=== PATIENT | female | born 1985 | race Hispanic/Latino ===

== ENCOUNTER 2020-02-21 17:13 | Outpatient (CLI) | payer OTHER, SELFPAY ==
--- NOTE | ~2020-02-21 | US_ITS ---
EXAMINATION: US OB follow up DATE: 02/21/2020 17:40 INDICATION: Suspected demise during second trimester TECHNIQUE: Real-time ultrasound of the pelvis was performed. The interpreting radiologist was not pre sent for the study. COMPARISON: None. FINDINGS: There is a single living fetus in vertex presentation. The placenta is anterior. card iac activity is not detected. The amniotic fluid index is subjectively normal. IMPRESSION: 1. demise. Reviewed, dictated and finalized at location A. IMPRESSION: 1. demise.
== END 2020-02-21 17:14 | disposition home or self-care (01) ==
LOC: ANHIMG 17:18
PROVIDERS: PCP Internal Medicine; Visit Provider Obstetrics & Gynecology
DX: O36.4XX0 Maternal care for intrauterine death, not applicable or unspecified (principal)
CPT/HCPCS: 76816

== ENCOUNTER 2020-02-22 05:55 | Inpatient (IN) | payer OTHER, SELFPAY ==
[2020-02-22] VITALS (59 sets, daily range): BP systolic 86–118; BP diastolic 47–90; PULSE 64–118; TEMP 36.7–37.6; O2SAT 97–100; BMI 27.5
--- NOTE | 2020-02-22 06:38 | P.HP_ITS ---
H&P: HPI History of Present Illness Chief complaint: IUFD Narrative: Zeina Nieves is a 34 year old female 4 para 2011 who presents at 15 weeks gestation for induction of labor secondary to demise. She had a previous 13 week demise and 2 previous spontaneous vaginal deliveries at term. She had an ultrasound in office following some bleeding which showed an IUFD. This was confirmed at [facility]. Review of Systems Review of Systems: All systems reviewed & are unremarkable except as noted in HPI and below Meds Home Medications and Allergies Allergies Allergy/AdvReac Type Severity Reaction Status Date / Time No Known Allergies Allergy Unverified 06/09/19 11:10 Exam Const: General: no acute distress Eyes: General: appearance normal, both eyes and all related structures Neck: Neck: supple and no JVD Thyroid: thyroid normal Resp: Effort & Inspection: normal respiratory effort Auscultation: clear to auscultation bilaterally Cardio: Rate: regular rate Rhythm: regular rhythm GI: Inspection: non-distended GI Palp: Yes Soft to palpation, No Tenderness to palpation present (GI) and No Guarding due to palpation present (GI) Auscultation: normal bowel sounds : General: Yes bladder normal to palpation External Female Exam: normal external appearance Speculum Exam - Vagina: normal vaginal discharge and No vaginal bleeding Speculum Exam - Cervix: nontender Bimanual exam- vagina & uterus: bladder normal to palpation and No Cervical tenderness present OB/external & speculum: No vaginal bleeding Skin: General skin exam: no rashes or lesions noted Extrem: General: normal to inspection and no edema Psych: Mental Status: mental status grossly normal Affect: normal affect Assessment and Plan Additional Plan Impression: 15 week demise Plan: Vital lateral labor. Risks and benefits reviewed
[2020-02-22 07:20] LABS: Basophils Percent Auto 0.3 % (0.2-1.2); Eosinophils Percent Auto 0.5 % (0-4.4); Hematocrit 37.3 % (37.0-47.0); Hemoglobin 12.3 g/dL (12.0-15.0); Immature Granulocyte Absolute 0.06 K/mm3 (0.00-0.031); Lymphocytes Absolute Auto 1.27 K/mm3 (0.9-3.2); Lymphocytes Percent Auto 21.7 % (18.3-44.2); Mean Corpuscular Hemoglobin 29.6 pg (26-34); Mean Corpuscular Volume 89.9 fl (80-100); Mean Platelet Volume 10.7 fl (7.4-10.4); Monocytes Absolute Auto 0.4 K/mm3 (0.1-0.6); Monocytes Percent Auto 7.4 % (2.6-8.5); Neutrophils Percent Auto 69.1 % (45.5-73.1); Platelet Count Result 243 k/mm3 (150-375); Red Blood Count 4.15 M/mm3 (4.2-5.4); Red Cell Distribution Width 13.2 % (11.5-14.5); White Blood Count 5.8 K/mm3 (4.5-10.0)
[2020-02-22 07:33] LABS: Glucose 109 mg/dL (65-105)
[2020-02-22 07:38] LABS: Amphetamine Screen Urine Negative (Negative); Barbiturate Screen Urine Negative (Negative); Benzodiazepines Screen Urine Negative (Negative); Cannabinoid Screen Urine Negative (Negative); Cocaine Screen Urine Negative (Negative); Methadone Screen Urine Negative (Negative); Opiate Screen Urine Negative (Negative); Phencyclidine Screen Urine Negative (Negative)
[2020-02-22] MEDS: MISOPROSTOL 200 MCG TABLET VAGINAL ×2 (08:02→11:22)
[2020-02-22 08:13] LABS: HIV 1/2 Ab P24 Ag Result Negative (Negative)
[2020-02-22 08:31] LABS: Free T4 Free Thyroxine 1.03 ng/mL (0.78-2.19)
--- NOTE | 2020-02-22 12:51 | PM.PROC ---
Procedure Note - Detailed Date of procedure: 02/22/20 Pre-op diagnosis: IUFD Surgeon: Félix Brower MD Postop diagnosis IUFD Anesthesia: None EBL: 25cc Findings: 2nd trimester demise/placenta deliver pending Complications: None Procedure: Patient was admitted for induction of labor secondary to a 15 week demise. Cytotec was placed twice. The baby spontaneously delivered. Blood loss at this point is 15cc. Placenta is still in the uterus and no bleeding is seen. Cervix is 2-3 cm. Will continue with Cytotec as long as bleeding is minimal
[2020-02-22] MEDS: MISOPROSTOL 200 MCG TABLET RECTAL (12:54)
[2020-02-22] MEDS: LACTATED RINGERS 1,000 ML 125 ML IV CONT (14:35)
[2020-02-22] MEDS: OXYTOCIN 30 UNITS/NS 500 ML 30 UNITS/500 ML BAG 999 UNITS IV CONT (14:50)
--- NOTE | 2020-02-22 15:20 | PM.PROC ---
Procedure Note - Detailed Date of procedure: 02/22/20 Pre-op diagnosis: IUFD Surgeon: Félix Brower MD Postop diagnosis: Retained placenta Procedure: Dilatation and evacuation placenta. EBL: 100cc Findings: Retained placenta in a Complications: None Description of procedure: The patient was watched following a spontaneous vaginal delivery of a 15 week demise. The placenta did not deliver. After obtained formed consent Dr. Nelson applied IV sedation and the cervix was grasped with a ring forceps. The ring forceps was passed in the placenta removed piecemeal through the vagina through the cervix. Banjo curette was removed and no further tissue removed. Blood loss was estimated 100cc. Sponge in was 1 counts were correct. There were no complications
--- NOTE | 2020-02-22 15:23 | PM.DS ---
DS: Diagnosis Admitting Diagnosis Admitting Diagnosis: Fifteen week demise Retained placenta DS: Summary Time Spent with Patient Time attestation: Total time spent providing and/or coordinating discharge services: Exam Const: General: no acute distress Eyes: General: appearance normal, both eyes and all related structures Neck: Neck: supple and no JVD Thyroid: thyroid normal Resp: Effort & Inspection: normal respiratory effort Auscultation: clear to auscultation bilaterally Cardio: Rate: regular rate Rhythm: regular rhythm GI: Inspection: non-distended GI Palp: Yes Soft to palpation, No Tenderness to palpation present (GI) and No Guarding due to palpation present (GI) Auscultation: normal bowel sounds : General: Yes bladder normal to palpation External Female Exam: normal external appearance Speculum Exam - Vagina: normal vaginal discharge and No vaginal bleeding Speculum Exam - Cervix: nontender Bimanual exam- vagina & uterus: bladder normal to palpation and No Cervical tenderness present OB/external & speculum: No vaginal bleeding Skin: General skin exam: no rashes or lesions noted Extrem: General: normal to inspection and no edema Psych: Mental Status: mental status grossly normal Affect: normal affect DS: Data Data Completed and Pending Pending studies at discharge: Pending at discharge 02/22/20 13:20 Cytology [PTH] Routine 02/22/20 15:14 Surgical [PTH] Routine Labs on day of discharge: Labs from last 24 hours 02/22/20 02/22/20 02/22/20 07:07 07:07 07:06 WBC RBC Hgb Hct MCV MCH MCHC RDW Plt Count MPV Immature Gran % (Auto) Neut % (Auto) Lymph % (Auto) [place] % (Auto) Eos % (Auto) Baso % (Auto) Lymph # (Auto) [place] # (Auto) Eos # (Auto) Baso # (Auto) Abs Immat Gran (auto) Absolute Neuts (auto) Absolute Nucleated RBC Nucleated RBC % LA PTT Screen LA PTT Comment dRVVT Screen dRVVT Additional Test Lupus Anticoag Interp Glucose TSH Free T4 Urine Opiates Screen Urine Methadone Screen Ur Barbiturates Screen Ur Phencyclidine Scrn Ur Amphetamine Screen U Benzodiazepines Scrn Urine Cocaine Screen U Cannabinoids Screen Beta-2-GPI IgG Ab Pending Beta-2-GPI IgA Ab Pending Beta-2-GPI IgM Ab Pending Anti-Cardiolipin IgG Ab Anti-Cardiolipin IgA Ab Anti-Cardiolipin IgM Ab RPR Pending CMV IgG Ab Pending CMV IgM Ab Pending HIV 1&2 Ab/P24 Ag 4thGn Blood Type B Positive Antibody Screen Negative KB Hemoglobin Negative 02/22/20 02/22/20 02/22/20 07:06 07:06 07:06 WBC RBC Hgb Hct MCV MCH MCHC RDW Plt Count MPV Immature Gran % (Auto) Neut % (Auto) Lymph % (Auto) [place] % (Auto) Eos % (Auto) Baso % (Auto) Lymph # (Auto) [place] # (Auto) Eos # (Auto) Baso # (Auto) Abs Immat Gran (auto) Absolute Neuts (auto) Absolute Nucleated RBC Nucleated RBC % LA PTT Screen LA PTT Comment dRVVT Screen dRVVT Additional Test Lupus Anticoag Interp Glucose TSH Free T4 1.03 Urine Opiates Screen Urine Methadone Screen Ur Barbiturates Screen Ur Phencyclidine Scrn Ur Amphetamine Screen U Benzodiazepines Scrn Urine Cocaine Screen U Cannabinoids Screen Beta-2-GPI IgG Ab Beta-2-GPI IgA Ab Beta-2-GPI IgM Ab Anti-Cardiolipin IgG Ab Pending Anti-Cardiolipin IgA Ab Pending Anti-Cardiolipin IgM Ab Pending RPR CMV IgG Ab CMV IgM Ab HIV 1&2 Ab/P24 Ag 4thGn Negative Blood Type Antibody Screen KB Hemoglobin 02/22/20 02/22/20 02/22/20 07:06 07:05 07:05 WBC 5.8 RBC 4.15 L Hgb 12.3 Hct 37.3 MCV 89.9 MCH 29.6 MCHC 33.0 RDW 13.2 Plt Count 243 MPV 10.7 H Immature Gran % (Auto) 1.0 H Neut % (Auto) 69.
[2020-02-22] MEDS: IBUPROFEN 600 MG TABLET PO (16:19)
[2020-02-23 11:25] LABS: Rapid Plasma Reagin Non-Reactive (NonReactive)
[2020-02-24 05:01] LABS: Lupus dRVVT 1:1 Mix Interpreta Not Indicated; Lupus dRVVT Screen 34 sec (<=45); PTT-LA Screen 30 sec (<=40)
[2020-02-25 01:54] LABS: Anti Cardio Antibody IgM <12 MPL (<=12); Anti Cardiolipin Antibody IgA <11 APL (<=11); Anti Cardiolipin Antibody IgG <14 GPL (<=14)
[2020-02-25 16:54] LABS: CMV IgM Antibody <30.00 AU/mL (<30.00)
== END 2020-02-22 19:20 | disposition home or self-care (01) | DRG 770 ==
PROVIDERS: Admitting Provider Obstetrics & Gynecology; PCP Internal Medicine; Visit Provider Obstetrics & Gynecology
DX: O02.1 Missed abortion (principal); Z3A.15 15 weeks gestation of pregnancy
CPT/HCPCS: 36415; 76816; 80307; 82947; 84439; 84443; 85025; 85460; 85597; 85598; 85613; 85670; 85730; 86146; 86147; 86592; 86644; 86645; 86703; 86850; 86900; 86901; 88305; 88307; A9270; G0432; J2590; J3010; J7120

== ENCOUNTER 2021-08-10 18:20 | Emergency (ER) | payer OTHER, SELFPAY ==
[2021-08-10 18:35] VITALS: BP 132/98; PULSE 72; RESP 17; TEMP 36.7; O2SAT 100
--- NOTE | 2021-08-10 21:22 | PC.NURSE ---
1st call to bring pt to room, no answer.
== END 2021-08-10 21:22 | disposition left against medical advice (07) ==
PROVIDERS: PCP Internal Medicine
DX: Z53.21 Procedure and treatment not carried out due to patient leaving prior to being seen by health care provider (principal)
CPT/HCPCS: 99199

== ENCOUNTER 2022-11-01 01:43 | Observation (INO) | payer OTHER, SELFPAY ==
--- NOTE | 2022-11-01 01:43 | OBADM ---
This patient, Zeina Nieves, admitted to the OB room OB Post 116 for observation. Patient/family oriented to hospital policies and general routines including ID bracelet, bed and alarms, visiting hours, pain management, procedures, bathroom and other care routines, personal items, smoking policy, room service/diet, and visiting hours. Patient/Family are encouraged to report perceived risks to care and to ask questions if they do not understand what they are told or what they should do.
[2022-11-01 02:07] VITALS: BP 107/70; PULSE 84
--- NOTE | 2022-11-01 02:30 | PC.NURSE ---
Notified Dr. Obrien of maternal and assessments. Patient complaint of bright red vaginal bleeding following urination, patient states blood was present when she was wiping after voiding. Patient has voided 2 times following initial vaginal bleeding and states she is no longer having any bleeding when she is wiping. VSS. Patient denies any pain or contractions. Abdomen palpates soft. FHT appropriate for gestational age. Patient reports active movement. Orders received.
[2022-11-01 02:54] LABS: Add Urine Microscopic? NO; Appearance Urine Clear (Clear); Bilirubin Urine Negative (Negative); Blood Urine Negative (Negative); Color Urine Yellow (Yellow); Glucose Urine UA Negative (Negative); Ketones Urine Negative (Negative); Leukocyte Esterase Ur Negative LEU/UL (Negative); Nitrate Urine Negative (Negative); Protein Urine Negative (Negative); Specific Grav Ur <= 1.005 (1.001-1.035); Urobilinogen Urine 0.2 mg/dL (<2.0)
[2022-11-01 02:57] LABS: Bacteria Urine Trace /hpf; Mucus Urine Rare /lpf; RBC Urine 0-2 /hpf (0-2); Squamous Epithelial Cell Urine Rare /hpf (Few); WBC Urine 0-3 /hpf
--- NOTE | 2022-11-01 03:28 | PC.NURSE ---
Discharge instructions reviewed with patient. labor precautions reviewed. Patient states understanding of all discharge instructions, agrees to discharge and denies questions.
--- NOTE | 2022-12-02 08:25 | PM.OBTRLD ---
OB - Triage/Final Diagnosis Visit Information Comments/Additional reasons for admission: I have assessed the risk for this patient, Zeina Nieves, and determined that she would benefit from observation care. Evaluation Laboratory results: Laboratory Tests 11/01/22 02:44 Urine Color Yellow Urine Appearance Clear Urine pH 7.0 Ur Specific [place] <= 1.005 Urine Protein Negative Urine Glucose (UA) Negative Urine Ketones Negative Ur Blood (Man) Negative Urine Nitrate Negative Urine Bilirubin Negative Urine Urobilinogen 0.2 Leukocyte Esterase Rfl Negative Urine RBC 0-2 Urine WBC 0-3 Ur Squamous Epith Cells Rare Urine Bacteria Trace Urine Mucus Rare Final Diagnosis (1) Vaginal bleeding during : Code(s): O46.90 - Antepartum hemorrhage, unspecified, unspecified trimester Status: Acute
== END 2022-11-01 03:36 | disposition home or self-care (01) ==
PROVIDERS: Admitting Provider Obstetrics & Gynecology; PCP Internal Medicine; Visit Provider Obstetrics & Gynecology
DX: O46.93 Antepartum hemorrhage, unspecified, third trimester (principal); Z3A.30 30 weeks gestation of pregnancy
CPT/HCPCS: 81003; G0378; G0379

== ENCOUNTER 2023-01-09 04:59 | Inpatient (IN) | payer OTHER, SELFPAY ==
[2023-01-09] VITALS (28 sets, daily range): BP systolic 80–130; BP diastolic 58–88; PULSE 73–122; RESP 14–18; TEMP 36.6–37.3; O2SAT 97–99; BMI 28.2
--- NOTE | 2023-01-09 05:28 | LDADM ---
This patient, Zeina Nieves, was admitted to Labor/Delivery/Recovery 105 on 01/09/23 at 04:59. Plans for labor, pain management and were discussed with patient. Patient/family oriented to hospital policies and general routines including ID bracelet, bed and alarms, visiting hours, pain management, procedures, bathroom and other care routines, personal items, smoking policy, room service/diet and guest tray routines, security routines, and visiting hours. Patient/Family are encouraged to report perceived risks to care and to ask questions if they do not understand what they are told or what they should do. See OBIX for further documentation.
[2023-01-09 05:35] LABS: Basophils Percent Auto 0.3 % (0.2-1.2); Eosinophils Percent Auto 0.4 % (0-4.4); Hematocrit 35.8 % (37.0-47.0); Hemoglobin 12.2 g/dL (12.0-15.0); Immature Granulocyte Absolute 0.16 K/mm3 (0.00-0.031); Immature Granulocyte Percent A 2.1 % (0-0.5); Lymphocytes Absolute Auto 1.57 K/mm3 (0.9-3.2); Lymphocytes Percent Auto 20.8 % (18.3-44.2); Mean Corpuscular HGB Conc 34.1 g/dl (32-36); Mean Corpuscular Hemoglobin 31.5 pg (26-34); Mean Corpuscular Volume 92.5 fl (80-100); Mean Platelet Volume 11.1 fl (7.4-10.4); Monocytes Absolute Auto 0.5 K/mm3 (0.1-0.6); Monocytes Percent Auto 6.5 % (2.6-8.5); Neutrophils Absolute Auto 5.3 K/mm3 (1.3-6.7); Neutrophils Percent Auto 69.9 % (45.5-73.1); Platelet Count Result 198 k/mm3 (150-375); Red Blood Count 3.87 M/mm3 (4.2-5.4); Red Cell Distribution Width 14.3 % (11.5-14.5); White Blood Count 7.5 K/mm3 (4.5-10.0)
[2023-01-09] MEDS: OXYTOCIN 30 UNITS/NS 500 ML 30 UNITS/500 ML BAG IV CONT (05:50)
[2023-01-09] MEDS: LACTATED RINGERS 1,000 ML 125 ML IV CONT (05:50)
--- NOTE | 2023-01-09 08:25 | PM.IMHP ---
H&P: HPI History of Present Illness Date/Time: 01/09/23 08:25 Chief Complaint: induction of labor Narrative: Zeina is a 37yo at 40.2 for IOL. She has history of 2 second trimester miscarriges and is AMA. 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 GBS neg. Review of Systems Review of Systems: All systems reviewed & are unremarkable except as noted in HPI and below PMFSH Family History Family History Father Hypertension Social History Social History (System 10/28/21 @ 11:05 by Cristopher Velazquez) Smoking status: Never smoker Substance use: never Lack of Transportation: No Lack of Food: Never True Current Housing: I Have Housing Concerned About Future Housing: No Difficulty Paying Gas/Electric Bills: No Difficulty Paying for Meds: No Currently Unemployed: No Education: High School Diploma/GED Difficulty w/ Childcare or Family Care: No Gender identity (if verbalized by the patient): Female Spiritual care concerns: No Meds Home Medications and Allergies Home Medications Medication Instructions Recorded Confirmed Type ferrous sulfate 325 mg (65 mg 325 mg PO DAILY 12/11/22 12/11/22 History iron) tablet prenat.vits,nile,zuf-xbsy-rifis 1 tablet PO HS 12/11/22 12/11/22 History Allergies Allergy/AdvReac Type Severity Reaction Status Date / Time No Known Allergies Allergy Unverified 10/28/21 11:05 Vital Signs Vital Signs - 24 hr 01/09/23 05:17 01/09/23 05:31 01/09/23 05:46 Temperature 98 F Pulse Rate 104 H 88 83 Respiratory Rate 18 Blood Pressure 128/86 118/77 111/72 Oxygen Delivery 01/09/23 06:01 01/09/23 06:31 01/09/23 07:01 Temperature Pulse Rate 105 H 78 87 Respiratory Rate Blood Pressure 97/74 L 120/65 108/78 Oxygen Delivery 01/09/23 07:31 01/09/23 07:35 01/09/23 08:01 Temperature Pulse Rate 85 83 76 Respiratory Rate Blood Pressure 80/61 L 106/78 119/70 Oxygen Delivery 01/09/23 05:27 Temperature Pulse Rate Respiratory Rate Blood Pressure Oxygen Delivery Room Air Exam Const: General: no acute distress Resp: Effort & Inspection: normal respiratory effort Auscultation: clear to auscultation bilaterally Cardio: Rate: regular rate Rhythm: regular rhythm GI: GI Palp: Yes Soft to palpation Extrem: General: normal to inspection H&P: Results Labs Labs: Short CBC 01/09/23 Range/Units 05:22 WBC 7.5 (4.5-10.0) K/mm3 Hgb 12.2 (12.0-15.0) g/dL Hct 35.8 L (37.0-47.0) % Plt Count 198 (150-375) k/mm3 Assessment and Plan Assessment and plan (1) Elective induction of labor planned: Status: Acute Plan GBS neg FHT category 1 pitocin per protocol
--- NOTE | 2023-01-09 09:13 | WPDANESEPP ---
Anes - Eval Pre Procedure Procedure: labor epidural Date/Time: 01/09/23 09:13 Preop Diagnosis: labor pain Pre Op Diagnosis: iol Patient Data Age: 37 Gender: F Height: 1.65 m Weight: 77 kg Last Vital Signs Temp 37.1 C 01/09/23 08:48 Pulse 77 01/09/23 08:31 Resp 18 01/09/23 05:31 BP 117/76 01/09/23 08:31 O2 Del Method Room Air 01/09/23 05:27 Allergies Allergy/AdvReac Type Severity Reaction Status Date / Time No Known Allergies Allergy Unverified 10/28/21 11:05 Home Medications Medication Instructions Recorded Confirmed Type ferrous sulfate 325 mg (65 mg 325 mg PO DAILY 12/11/22 12/11/22 History iron) tablet prenat.vits,nile,jpo-opzu-fqxua 1 tablet PO HS 12/11/22 12/11/22 History Laboratory Tests 01/09/23 01/09/23 01/09/23 05:22 05:22 05:22 WBC 7.5 K/mm3 K/mm3 (4.5-10.0) RBC 3.87 M/mm3 L M/mm3 (4.2-5.4) Hgb 12.2 g/dL g/dL (12.0-15.0) Hct 35.8 % L % (37.0-47.0) MCV 92.5 fl fl (80-100) MCH 31.5 pg pg (26-34) MCHC 34.1 g/dl g/dl (32-36) RDW 14.3 % % (11.5-14.5) Plt Count 198 k/mm3 k/mm3 (150-375) MPV 11.1 fl H fl (7.4-10.4) Immature Gran % (Auto) 2.1 % H % (0-0.5) Neut % (Auto) 69.9 % % (45.5-73.1) Lymph % (Auto) 20.8 % % (18.3-44.2) [place] % (Auto) 6.5 % % (2.6-8.5) Eos % (Auto) 0.4 % % (0-4.4) Baso % (Auto) 0.3 % % (0.2-1.2) Lymph # (Auto) 1.57 K/mm3 K/mm3 (0.9-3.2) [place] # (Auto) 0.5 K/mm3 K/mm3 (0.1-0.6) Eos # (Auto) 0.0 K/mm3 K/mm3 (0-0.3) Baso # (Auto) 0.0 K/mm3 K/mm3 (0.0-0.1) Abs Immat Gran (auto) 0.16 K/mm3 H K/mm3 (0.00-0.031) Absolute Neuts (auto) 5.3 K/mm3 K/mm3 (1.3-6.7) Absolute Nucleated RBC 0.0 K/mm3 K/mm3 (0.0-0.012) Nucleated RBC % 0.0 % % (0.0-0.2) RPR Pending Blood Type B Positive Antibody Screen Negative Patient hx anesthesia problems: none Family hx anesthesia problems: none Results Review: All pre-operative results and documents have been reviewed as part of the pre-operative evaluation. PMFSH Family History Family History Father Hypertension Social History Social History Smoking status: Never smoker Substance use: never Lack of Transportation: No Lack of Food: Never True Current Housing: I Have Housing Concerned About Future Housing: No Difficulty Paying Gas/Electric Bills: No Difficulty Paying for Meds: No Currently Unemployed: No Education: High School Diploma/GED Difficulty w/ Childcare or Family Care: No Gender identity (if verbalized by the patient): Female Spiritual care concerns: No Exam Day of Procedure 01/09/23 09:13 Patient weight: normal Heart: regular rate and rhythm Lungs: clear to auscultation and normal air movement Airway: Mallampati scale Neurological: alert and oriented
--- NOTE | 2023-01-09 10:58 | PM.OBPRVD ---
OB - Delivery Note Procedure Delivery date: 01/09/23 Procedure: Induction method: AROM and Per Pitocin Protocol Delivery monitor: External FHT and External Uterine Route of delivery: Episiotomy description: None Laceration Description: Perineal - 1st Degree Delivery repair: vicryl Specimen: No Quantitative Blood Loss (ml): 64 Anesthesia type: Local Disposition: Floor Baby Date of : 01/09/23 Time of : 10:44 Weeks of gestation at delivery: 40 gender: Female Weight (pounds): 7 Weight (ounces): 13 presentation: vertex position: Right Occiput Anterior Placenta delivery description: Spontaneous Cord Vessel Description: 3 Vessels, Clamped/Cut and Delayed Cord Clamping score one minute: 8 score five minutes: 9 Narrative: mom and baby stable and doing skin to skin
[2023-01-09 11:29] LABS: Rapid Plasma Reagin Non-Reactive (NonReactive)
[2023-01-09] MEDS: IBUPROFEN 600 MG TABLET PO ×2 (11:32→23:10)
[2023-01-09] MEDS: BENZOCAINE 20% AER SPR (*SP) 56 GM CAN 1 SPRAY TOPICAL (11:33)
[2023-01-09] MEDS: WITCH HAZEL 40 PADS 1 PAD TOPICAL (11:33)
[2023-01-10 05:09] LABS: Hematocrit 30.4 % (37.0-47.0); Hemoglobin 10.3 g/dL (12.0-15.0)
[2023-01-10 06:30] VITALS: BP 113/62; PULSE 77; RESP 16; TEMP 37.1; O2SAT 98
--- NOTE | 2023-01-10 08:49 | PM.OBPNVD ---
OB - PN: Subj Subjective Date/time seen: 01/10/23 08:49 Patient comments: no complaints and pain well controlled baby status: doing well and nursing well [place] feeding status: breast and bottle feeding Narrative: would like DC home today. OB - PN: Obj Data Labs 01/10/23 04:44 Labs: Laboratory Results - last 24 hr 01/09/23 01/10/23 05:22 04:44 Hgb 10.3 L Hct 30.4 L RPR Non-reactive OB - PN A/P Plan day: 1 Plan: routine care and discharge home Time Spent With Patient Time: Total time spent is greater than 50% in coordination of care (as documented) at patient's floor/unit and/or counseling patient: Time with patient: less than 15 minutes Exam Narrative: NAD abdomen soft, nontender, fundus firm below the umbilicus Extremities nontender, 1+ edema
--- NOTE | 2023-01-10 08:51 | PM.OBDSVD ---
DS: Admitting Diagnosis Discharge Date 01/10/23 Admitting Diagnosis term IUP DS: Discharge Diagnosis Discharge Diagnosis (1) , delivered: Code(s): O80 - Encounter for full-term uncomplicated delivery Status: Acute OB - DS: Summary Hospital Course Hospital Course: Zeina was admitted for elective induction of labor at term. She proceeded to have an uncomplicated vaginal delivery and course and was discharged home on PPD 1. OB Procedures : Ultrasound OB Procedures Intrapartum: Spontaneous Vag Delivery OB Procedures: : None Peripartum Data Infant Delivery Method: Natural Vaginal complications: none Status at Discharge Functional status at discharge: independent ambulation Time Spent with Patient Time attestation: Total time spent providing and/or coordinating discharge services: Exam Narrative: NAD abdomen soft, appropriately tender Ext non tender, 1+ edema DS: Data Data Completed and Pending Labs on day of discharge: Labs from last 24 hours 01/10/23 01/09/23 04:44 05:22 Hgb 10.3 L Hct 30.4 L RPR Non-reactive Discharge Plan Discharge Attending physician on discharge: Rubi Danielson Discharging Clinician: Rubi Danielson Anticipated Discharge Date/Time: 01/10/23 08:50 Patient Disposition: Home, Self-Care Activity: pelvic rest Diet: regular Patient Instructions: Antibiotic Form Stand Alone Forms: General Discharge Information Follow-up/Referrals: Rubi Danielson MD [Physician] - 4 Weeks Discharge Medications: Continued ferrous sulfate 325 mg (65 mg iron) Tablet 325 mg PO DAILY #2 Tablet 1 tablet PO HS Date of admission: 01/09/23 04:59 Primary Care Provider: DonteOmar Admitting Provider: Rubi Danielson Attending physician on admission: Rubi Danielson Condition: Stable
[2023-01-13 14:25] VITALS: BP 114/71; PULSE 75; RESP 20; TEMP 36.3; O2SAT 98
== END 2023-01-10 13:10 | disposition home or self-care (01) | DRG 807 ==
LOC: ANHLDR 05:01 → ANHOB2 13:25
PROVIDERS: Advanced Practice Midwife; Admitting Provider Obstetrics & Gynecology; PCP Internal Medicine; Visit Provider Obstetrics & Gynecology
DX: O99.892 Other specified diseases and conditions complicating childbirth (principal); Z37.0 Single live birth; Z3A.40 40 weeks gestation of pregnancy; Q92.8 Other specified trisomies and partial trisomies of autosomes; O70.0 First degree perineal laceration during delivery; Z87.59 Personal history of other complications of pregnancy, childbirth and the puerperium
CPT/HCPCS: 36415; 85014; 85018; 85025; 86592; 86850; 86900; 86901; A9270; J2590; J7120

== ENCOUNTER 2025-01-09 09:08 | Outpatient (CLI) | payer SELFPAY ==
--- NOTE | ~2025-01-09 | MMUS_ITS ---
EXAMINATION: MM diagnostic ольга BI w amira, US breast LT limited HISTORY: Left breast lump TECHNIQUE: 3-D tomosynthesis images of the breasts were performed and synthetic 2-D images were gener ated. CAD analysis was submitted and interpreted. High resolution limited left breast ultrasound was performed. COMPARISON: None BREAST PARENCHYMAL COMPOSITION:Dense: The breasts are heterogeneously dense, which may obscure small masses. FINDINGS: MAMMOGRAPHIC FINDINGS: No suspicious mass lesion or distortion seen in either breast. No suspicious masses or calcifications . Parenchymal pattern of the breasts is unremarkable. ULTRASOUND: At the area of palpable concern with, at the 11:00 position left breast, 6 cm from nipple, there is a 9 x 8 x 7 mm hypoechoic mass, with mildly irregular borders. Shape is somewhat irregular. No posteri or shadowing. IMPRESSION: 9 x 8 x 7 mm indeterminate mass at the area of palpable concern left breast, as detailed above. Ultra sound-guided biopsy is recommended to establish a histologic diagnosis. BI-RADS category 4, suspicious findings. Reviewed, dictated and finalized at location . IMPRESSION: 9 x 8 x 7 mm indeterminate mass at the area of palpable concern left breast, as detailed above. Ultrasound-guided biopsy is recommended to establish a histolo gic diagnosis. BI-RADS category 4, suspicious findings.
== END 2025-01-09 09:09 | disposition home or self-care (01) ==
PROVIDERS: PCP Internal Medicine; Visit Provider Student in an Organized Health Care Education/Training Program
DX: N63.20 Unspecified lump in the left breast, unspecified quadrant (principal); R92.8 Other abnormal and inconclusive findings on diagnostic imaging of breast
CPT/HCPCS: 76642; 77062; 77066; G0279